=== PATIENT | male | born 1970 | race Caucasian/White ===

== ENCOUNTER → 2024-03-11 06:19 | Day surgery (SDC) | payer OTHER, SELFPAY | LOC: GI 06:19 | PROVIDERS: ATTENDING PHYSICIAN Surgery | DX: K62.5 Hemorrhage of anus and rectum (principal); K57.30 Diverticulosis of large intestine without perforation or abscess without bleeding; K64.9 Unspecified hemorrhoids; K63.5 Polyp of colon; K62.1 Rectal polyp | CPT/HCPCS: 45380; 88305 ==

== ENCOUNTER 2025-02-01 08:09 | Inpatient (IN) | payer BC, SELFPAY ==
[2025-01-12 11:35] LABS: Hematocrit 40.6 % (39.0-52.0); Hemoglobin 13.9 g/dL (13.0-18.0); Mean Corp Hgb Conc. 34.2 g/dL (33.0-37.0); Mean Corpuscular Volume 83.7 fL (80.0-94.0); Platelet Count 180 10^3/uL (130-400); Red Cell Dist. Width 13.1 % (11.5-14.5)
[2025-01-12 12:16] LABS: ALT (SGPT) 26 U/L (0-50); AST (SGOT) 23 U/L (17-59); Albumin 4.5 g/dl (3.5-5.0); Alkaline Phosphatase 56 U/L (38-126); Blood Urea Nitrogen 17 mg/dl (9-20); Calcium 10.1 mg/dl (8.4-10.2); Carbon Dioxide 30 mmol/L (22-30); Chloride 110 mmol/L (98-107); Glucose 114 mg/dl (70-99); Potassium 4.2 mmol/L (3.5-5.1); Sodium 144 mmol/L (135-145); Total Protein 7.4 g/dl (6.3-8.2); eGFR > 60.00
[2025-01-12 12:57] LABS: Glycohemoglobin (HgbA1c) 4.9 % (4.0-5.6)
[2025-01-12 14:20] VITALS: BMI 37.8
[2025-01-12 14:54] VITALS: BMI 37.8
--- NOTE | 2025-01-27 11:55 | CM ---
Addendum entered by Alessandra Velarde RN 01/27/25 15:44:
CM spoke with patient. Patient confirmed demographics. Patient lives independently with . patient plans to use [facility] for outpatient PT. Patient has a walker, cane, gel pack and commode. Kole is active with his PCP> Patient plans to use
[facility].
Plan: Home with outpatient PT.
Original Note:
CM reviewed medical records. Spoke with patient briefly for CM IA. Patient was unable to speak. Plan for patient to return my call.
[2025-02-01] VITALS (24 sets, daily range): BP systolic 90–160; BP diastolic 68–100; PULSE 76; O2SAT 97
[2025-02-01] MEDS: TYLENOL 650 MG PO ×4 (08:30→23:00)
[2025-02-01] MEDS: CELEBREX 200 MG PO (08:30)
[2025-02-01] MEDS: NORMOSOL-R/PLASMALYTE-A 1000 IV ×2 (08:32→15:45)
--- NOTE | 2025-02-01 08:32 | W.PN.UPDATE ---
Update Note
Progress Note Update
R knee OA s/p R TKA w/ Dr Bello 02/01/25
- EARLY DISCHARGE
DVT prophylaxis - ASA, b/l venous foot pumps
HTN - + parameters - monitor BP
CAD/NSTEMI, 08/2023, status post PCI to distal OM - continue ASA but increase to 325 mg daily dosing x4 weeks for blood clot prevention
LBBB and PVCs, asymptomatic - monitor on tele
- Continue BB
Allergy-induced asthma
Obstructive sleep apnea, utilizing positional therapy
- Monitor O2
- IS
- Add supplemental O2 HS
- Duonebs prn
- Decadron to help w/ breathing
GERD - continue PPI therapy
BPH - monitor voiding
- Add daily Flomax during admission
Obesity, BMI 37.7 - would benefit from Cefadroxil upon d/c d/t elevated BMI
Hypercholesterolemia
Mild dysphagia
Schatzki's ring, status post esophageal dilation
Diverticulosis
Horseshoe kidney
Nephrolithiasis
Questionable TIA after PCI 08/2023
Scoliosis
Chronic postnasal drip
Insomnia
[2025-02-01] MEDS: DILAUDID 0.5 MG IV (12:28)
[2025-02-01] MEDS: ZOFRAN 4 MG IV (12:29)
[2025-02-01] MEDS: ROXICODONE 5 MG PO ×2 (14:36→20:17)
[2025-02-01] MEDS: FLOMAX 0.4 MG PO (14:36)
[2025-02-01] MEDS: DILAUDID 0.25 MG IV (15:06)
[2025-02-01] MEDS: ASPIRIN 325 MG PO (18:25)
[2025-02-01] MEDS: ANCEF 5 IV (18:25)
[2025-02-01] MEDS: LIPITOR 40 MG PO (18:25)
--- NOTE | 2025-02-01 18:40 | PTCARENOTE ---
Received patient from [facility] via bed around 1750 in stable condition. Right knee dressing with small amount of serous drainage. Patient oriented to room. Call almendarez in reach.
[2025-02-01] MEDS: COLACE PO (20:15)
[2025-02-01] MEDS: SENOKOT PO (20:15)
[2025-02-01] MEDS: BACTROBAN 2% OINTMENT 1 APPLIC NASAL (20:16)
[2025-02-01] MEDS: TOPROL XL 50 MG PO (20:16)
[2025-02-01] MEDS: DECADRON 4 MG PO (20:16)
[2025-02-01] MEDS: DIOVAN 160 MG PO (20:17)
[2025-02-01] MEDS: MELATONIN 5 MG PO (22:59)
[2025-02-01] MEDS: BENADRYL 25 MG PO (22:59)
[2025-02-01] MEDS: ROXICODONE 10 MG PO (23:00)
[2025-02-02] MEDS: ANCEF 5 IV (01:00)
--- NOTE | 2025-02-02 02:22 | DOWNTIME ---
There was a [employer] Client [employer] Operator Downtime on 02/02/2025 from 0100 to 02/02/2025 at 0220. Downtime documentation of patient's care, including medication administrations, has been reconciled in the electronic record per guidelines. Refer to the
patient's paper chart under the miscellaneous tab to see printed paper medication records and downtime forms.
[2025-02-02] MEDS: TYLENOL 650 MG PO ×3 (03:25→12:01)
[2025-02-02 03:30] VITALS: BP 141/74
[2025-02-02] MEDS: ROXICODONE 5 MG PO ×3 (03:30→09:28)
[2025-02-02 07:55] VITALS: BP 128/73
[2025-02-02] MEDS: CELEBREX 200 MG PO (07:55)
[2025-02-02] MEDS: FLOMAX 0.4 MG PO (07:55)
[2025-02-02] MEDS: FLORASTOR 250 MG PO (07:55)
[2025-02-02] MEDS: ASPIRIN 325 MG PO (07:55)
[2025-02-02] MEDS: DIOVAN PO (07:56)
[2025-02-02] MEDS: COLACE 100 MG PO (07:56)
[2025-02-02] MEDS: SENOKOT 17.2 MG PO (07:56)
[2025-02-02] MEDS: TOPROL XL 50 MG PO (07:56)
[2025-02-02] MEDS: PROTONIX 40 MG PO (07:56)
[2025-02-02] MEDS: DECADRON 4 MG PO (07:56)
[2025-02-02] MEDS: BACTROBAN 2% OINTMENT 1 APPLIC NASAL (07:57)
[2025-02-02] MEDS: FLEXERIL 5 MG PO (08:16)
[2025-02-02 09:00] VITALS: BP 134/84; PULSE 75
--- NOTE | 2025-02-02 09:08 | W.PN.ORTHO ---
Today's Communication / Plan
-
Await PT and OT recs.
D/c this AM if remaining clinically stable.
Assessment
.
Distal Motor Intact: Yes
Dressing:
Old bleeding noted along incision line.
Assessment:
R knee OA s/p R TKA w/ Dr Bello 02/01/25
- EARLY DISCHARGE
DVT prophylaxis - ASA, b/l venous foot pumps
R knee pain - pt to receive Flexeril, lidocaine patches this AM
- Continue Oxycodone q6hprn, Tylenol, Decadron, Celebrex
- Monitor pain and adjust meds further if indicated
HTN - + parameters - BPs overall stable
CAD/NSTEMI, 08/2023, status post PCI to distal OM - continue ASA but increase to 325 mg daily dosing x4 weeks for blood clot prevention
LBBB and PVCs, asymptomatic - rhythm stable on tele
- Continue BB
Allergy-induced asthma
Obstructive sleep apnea, utilizing positional therapy
- O2 stable on RA by POD 1
- IS
- Added supplemental O2 HS
- Duonebs prn -> not needed fortunately
- Decadron to help w/ breathing
GERD - continue PPI therapy
BPH - voiding appropriately by POD 1
- Added daily Flomax during admission
Obesity, BMI 37.7 - would benefit from Cefadroxil upon d/c d/t elevated BMI
Hypercholesterolemia
Mild dysphagia
Schatzki's ring, status post esophageal dilation
Diverticulosis
Horseshoe kidney
Nephrolithiasis
Questionable TIA after PCI 08/2023
Scoliosis
Chronic postnasal drip
Insomnia
Plan
.
Surgery / Date: R TKA w/ Dr Bello 02/01/25
DVT Prophylaxis: Aspirin
Activity:
Out of bed.
PT/OT
Discharge Plan: Home w/ Outpatient PT
Subjective
.
.:
Patient examined resting in bed.
R knee pain 5/10 at rest; however, patient was getting pain meds at time of my assessment.
Denies any other new significant complaints.
Eager for potential d/c today.
Vital Signs and Labs
.
Vital Signs and Labs:
Lab Results
01/12/25 11:14
01/12/25 11:14
Temp Pulse Resp BP Pulse Ox
97.7 F 75 18 134/84 97
02/02/25 07:55 02/02/25 07:56 02/02/25 07:55 02/02/25 07:56 02/02/25 07:55
Non-invasive Hgb result: 12.9
Physical Exam
-
HEENT: No pallor, cyanosis, or jaundice. Throat clear.
NECK: Supple. No JVD.
RESPIRATORY: Lungs clear to auscultation.
CVS: S1, S2 normal. RRR.�
ABDOMEN: Soft, non-tender. No distension. Obese.
EXTREMITIES: Strength equal, no calf pain with palpation/dorsiflexion. Calves soft.
FILTER TANK TENDER: AOx3. No focal deficits. [employer] administrator grossly intact
--- NOTE | 2025-02-02 09:18 | CM ---
Cm reviewed medical records. Patient is medically ready for discharge to home. Plan for outpatient PT.
PLAN: Home with outpatient PT.
--- NOTE | 2025-02-02 09:28 | W.DS.TRANS ---
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
-
Discharge Instructions:
Discharge Diagnosis/Procedures R knee OA s/p R TKA w/ Dr Bello 02/01/25
Diet Regular
Additional Diets Adequate hydration, minimize opioids, and wear
TEDs stockings to prevent low blood pressure/
dizziness.
Activity As tolerated,With Walker
Driving Restrictions Not until seen by your Dr
Bathing Restrictions OK to Shower
Other Services PT
Wound Care Dressing to be removed 1 week post-surgery.
[place] to be removed at 2 week follow-up with
surgeon's office.
Instructions:
Stand-Alone Forms: Total Hip/Knee Replacement D/C
Changes to Home Medications: Yes
Discharge Medications:
DC Medications w/original date entered in [employer]
atorvastatin 40 mg tablet 40 mg PO QPM High Cholesterol 01/11/25
levocetirizine 5 mg tablet (Xyzal) 5 mg PO DAILY Allergies 01/11/25
melatonin 5 mg tablet 5 mg PO HS Sleep 01/11/25
metoprolol succinate 50 mg tablet,extended release 24 hr 50 mg PO BID Heart Disease/Condition 01/11/25
omega [id number]-fish oil 1,200 mg (144 mg-216 mg) capsule (Fish Oil) 1 cap PO DAILY 01/11/25
Held on 02/02/25. Instructions: Resume on 02/08/25.
omeprazole 20 mg capsule,delayed release 20 mg PO DAILY 01/11/25
saw palm 160 mg-vit E 100 unit-selen 100 crg-feiq-kslocg-pygeum tablet (Prostate Health) 1 tab PO QPM 01/11/25
vitamin D3 125 mcg (5,000 unit)-vitamin K2 100 mcg capsule 1 cap PO QPM 01/11/25
clobetasol 0.05 % topical ointment 1 applic topical DAILYPRN PRN itching 01/12/25
diphenhydramine HCl 25 mg capsule (Benadryl) 25 mg PO HS Allergies 01/12/25
mupirocin 2 % topical ointment 1 applic intranasal BID #1 tube 01/12/25
Saccharomyces boulardii 250 mg capsule 250 mg PO BID #14 caps 02/02/25
acetaminophen 500 mg tablet (Acetaminophen Extra Strength) 1,000 mg (2 x 500 mg) PO Q6H #60 tabs 02/02/25
amlodipine 2.5 mg tablet 2.5 mg PO DAILY Blood Pressure #1 tab 02/02/25
aspirin 325 mg tablet 325 mg PO DAILY #30 tabs 02/02/25
butenafine 1 % topical cream (Lotrimin Ultra) 1 applic topical DAILY #0 grams 02/02/25
cefadroxil 500 mg capsule 500 mg PO BID #14 caps 02/02/25
celecoxib 200 mg capsule 200 mg PO DAILY #14 caps 02/02/25
cyclobenzaprine 5 mg tablet 5 mg PO DAILY PRN muscle spasms #10 tabs 02/02/25
dexamethasone 4 mg tablet 4 mg PO BID Anti-inflammatory #5 tabs 02/02/25
docusate sodium 100 mg capsule 100 mg PO BID #30 caps 02/02/25
lidocaine 4 % topical patch 2 patch topical DAILY #30 ea 02/02/25
ondansetron HCl 4 mg tablet 4 mg PO Q6H PRN nausea and vomiting #30 tabs 02/02/25
oxycodone 5 mg tablet 5 - 10 mg (1 - 2 x 5 mg) PO Q6H PRN moderate-severe pain #30 tabs 02/02/25
sennosides 8.6 mg tablet (Sara-stella) 17.2 mg (2 x 8.6 mg) PO BID #30 tabs 02/02/25
valsartan 160 mg tablet 160 mg PO BID #1 tab 02/02/25
Home Medication Changes
Saccharomyces boulardii 250 mg capsule 250 mg PO BID #14 caps 02/02/25
acetaminophen 500 mg tablet (Acetaminophen Extra Strength) 1,000 mg (2 x 500 mg) PO Q6H #60 tabs 02/02/25
aspirin 325 mg tablet 325 mg PO DAILY #30 tabs 02/02/25
cefadroxil 500 mg capsule 500 mg PO BID #14 caps 02/02/25
celecoxib 200 mg capsule 200 mg PO DAILY #14 caps 02/02/25
cyclobenzaprine 5 mg tablet 5 mg PO DAILY PRN muscle spasms #10 tabs 02/02/25
dexamethasone 4 mg tablet 4 mg PO BID Anti-inflammatory #5 tabs 02/02/25
docusate sodium 100 mg capsule 100 mg PO BID #30 caps 02/02/25
lidocaine 4 % topical patch 2 patch topical DAILY #30 ea 02/02/25
ondansetron HCl 4 mg tablet 4 mg PO Q6H PRN nausea and vomiting #30 tabs 02/02/25
oxycodone 5 mg tablet 5 - 10 mg (1 - 2 x 5 mg) PO Q6H PRN moderate-severe pain #30 tabs 02/02/25
sennosides 8.6 mg tablet (Sara-stella) 17.2 mg (2 x 8.6 mg) PO BID #30 tabs 02/02/25
Pending Results: No
[2025-02-02] MEDS: LIDOCAINE 4% PATCH TOPICAL (09:29)
[2025-02-02] MEDS: LIDOCAINE 4% PATCH 2 PATCH TOPICAL (09:31)
[2025-02-02 11:15] VITALS: BP 134/78
== END 2025-02-02 13:26 | disposition home or self-care (01) | DRG 470 ==
LOC: 2 SOUTH 08:09
PROVIDERS: ADMITTING PHYSICIAN Specialist; FAMILY PHYSICIAN Family Medicine
PROC: 0SRC0J9 Replacement of Right Knee Joint with Synthetic Substitute, Cemented, Open Approach (ICD-10-PCS; 2025-02-01)
DX: M17.11 Unilateral primary osteoarthritis, right knee (principal); I10 Essential (primary) hypertension; E78.00 Pure hypercholesterolemia, unspecified; I25.10 Atherosclerotic heart disease of native coronary artery without angina pectoris; I44.7 Left bundle-branch block, unspecified; I49.3 Ventricular premature depolarization; J45.909 Unspecified asthma, uncomplicated; G47.33 Obstructive sleep apnea (adult) (pediatric); K21.9 Gastro-esophageal reflux disease without esophagitis; M41.9 Scoliosis, unspecified; N40.0 Benign prostatic hyperplasia without lower urinary tract symptoms; R09.82 Postnasal drip; G47.00 Insomnia, unspecified; E66.9 Obesity, unspecified; I25.2 Old myocardial infarction; Q63.1 Lobulated, fused and horseshoe kidney; Z68.37 Body mass index [BMI] 37.0-37.9, adult; Z87.19 Personal history of other diseases of the digestive system; Z87.442 Personal history of urinary calculi; Z95.5 Presence of coronary angioplasty implant and graft; Z86.73 Personal history of transient ischemic attack (TIA), and cerebral infarction without residual deficits; Z79.82 Long term (current) use of aspirin
CPT/HCPCS: 36415; 73560; 80053; 83036; 85027; 87070; 97110; 97116; 97162; 97166; 97530; 97535; C1713; C1776

== ENCOUNTER → 2025-03-17 13:50 | Outpatient (REF) | payer BC, SELFPAY | LOC: RAD 13:50 | PROVIDERS: ATTENDING PHYSICIAN Specialist; FAMILY PHYSICIAN Family Medicine | DX: Z96.651 Presence of right artificial knee joint (principal); M79.661 Pain in right lower leg | CPT/HCPCS: 93971 ==